=== PATIENT | female | born 1995 | race Caucasian/White ===

== ENCOUNTER 2020-04-18 21:26 | Outpatient (CLI) | payer MEDICARE, MEDICAID | END 2020-04-18 21:27 | disposition critical access hospital (66) | LOC: EMS 21:26 | PROVIDERS: ATTEND Surgery | DX: S51.812A Laceration without foreign body of left forearm, initial encounter (principal); X78.8XXA Intentional self-harm by other sharp object, initial encounter; Y92.099 Unspecified place in other non-institutional residence as the place of occurrence of the external cause | CPT/HCPCS: A0425; A0429 ==

== ENCOUNTER 2020-04-18 22:00 | Emergency (ER) | payer MEDICARE, MEDICAID ==
[2020-04-18 22:14] VITALS: BP 125/78
[2020-04-18 22:28] LABS: MUDS CUTOFF CONCENTRATIONS CUTOFF CONC BELOW:
[2020-04-18 22:36] LABS: BASOPHILS # (AUTO) 0.1 10^3/uL (0.0-0.1); BASOPHILS % (AUTO) 0.6 %; BILIRUBIN,URINE NEGATIVE (NEGATIVE); GLUCOSE, URINE (UA) NEGATIVE (NEGATIVE); HGB - HEMOGLOBIN 12.4 g/dL (12.0-16.0); KETONES,URINE (UA) TRACE mg/dL (NEGATIVE); LEUKOCYTE ESTERASE, URINE NEGATIVE (NEGATIVE); LYMPHOCYTES % (AUTO) 23.4 %; MEAN CORPUSCULAR HEMOGLOBIN 29.7 pg (27.0-31.0); MEAN CORPUSCULAR HGB CONC 32.6 g/dL (32.0-36.0); MEAN CORPUSCULAR VOLUME 90.9 fL (81.0-99.0); MONOCYTES # (AUTO) 0.4 10^3/uL (0.0-1.0); MONOCYTES % (AUTO) 4.7 %; NEUTROPHILS # (AUTO) 6.2 10^3/uL (1.5-6.6); NEUTROPHILS % (AUTO) 71.2 %; NITRITE,URINE NEGATIVE (NEGATIVE); OCCULT BLOOD,URINE TRACE-LYSE (NEGATIVE); PLT - PLATELET COUNT 288 10^3/uL (130-450); PROTEIN,URINE NEGATIVE (NEGATIVE); RED BLOOD COUNT 4.18 10^6/uL (4.20-5.40); RED CELL DISTRIBUTION WIDTH 12.3 % (12.0-15.0); UROBILINOGEN,URINE 0.2 (NORMAL) E.U./dL (NORMAL); WHITE BLOOD COUNT 8.7 x10^3/uL (4.8-10.8)
[2020-04-18 22:37] LABS: CLARITY,URINE CLEAR (CLEAR)
--- NOTE | 2020-04-18 22:39 | ED Physician Documentation ---
PD HPI MHE - Stated complaint Stated Complaint: SI - Chief complaint Chief Complaint: MHE - History obtained from History obtained from: Patient (minimal contribution to HPI from patient due to refusing to talk to me), EMS, Police, Other (s.o.) - History of Present Illness Primary symptom: Self harm - cut Timing - onset: Today (tonight) Contributing factors: Other (see below) - Additional information Additional information: BIBA. significant other called 911 tonight. Patient insists on a female doctor for this evaluation. I explained that I am the only emergency department physician on duty at this time and she responds "you're not touching me". She refused to answer my questions and only allowed me to visually inspect her left FA regarding physical exam. Patient's significant other tells me that patient has difficulty this time of year due to loss of her grandparents. per s.o., she had to take a knife away from patient tonight due to concern she was going to self-harm and subsequently patient went into bathroom and self-inflicted cuts to left FA with a safety razor; s.o. called 911 and police report (reviewed by me) indicates patient would not talk to him but due to concern for her safety, the officer brings her to ED for involuntary evaluation. Review of Systems Unable to obtain: Uncooperative (refuses to answer any of my questions) PD PAST MEDICAL HISTORY - Past Medical History Psych: Depression, Other Other Past Medical History: Borderline personality. Alcohol. ETOH/Substance abuse - Past Surgical History Past Surgical History: No - Present Medications Home Medications: Ambulatory Orders Medication Instructions Recorded Confirmed Topiramate [Topamax] 04/18/20 - Allergies Allergies/Adverse Reactions: Allergies Allergy/AdvReac Type Severity Reaction Status Date / Time latex Allergy Unknown Verified 04/18/20 22:15 sertraline Allergy Unknown Verified 04/18/20 22:15 - Social History Does the pt smoke?: No Smoking Status: Never smoker Does the pt drink ETOH?: No PD ED PE NORMAL - Vitals Vital signs reviewed: Yes - General General: Well developed/nourished, Other (makes eye contact with s.o. and ED RN, minimal and brief eye contact with me. appears angry. says to me youre not touching me, thus exam limited to inpection of left wrist and observed behavior) - HEENT HEENT: EOMI - Derm Derm: Other (multiple superficial linear abrasions to ventral surface left forearm) - Neuro Eye Opening: Spontaneous Motor: Obeys Commands Verbal: Oriented GCS Score: 15 PD ED PE EXPANDED - Psych Psych: Withdrawn, Poor eye contact, Agitated Results - Vitals Vitals: Oxygen O2 Source Room air - Labs Labs: Laboratory Tests 04/18/20 04/18/20 04/18/20 22:25 22:25 22:25 WBC 8.7 RBC 4.18 L Hgb 12.4 Hct 38.0 MCV 90.9 MCH 29.7 MCHC 32.6 RDW 12.3 Plt Count 288 MPV 9.0 Neut # (Auto) 6.2 Lymph # (Auto) 2.0 [place] # (Auto) 0.4 Eos # (Auto) 0.0 Baso # (Auto) 0.1 Absolute Nucleated RBC 0.00 Nucleated RBC % 0.0 Sodium 137 Potassium 3.6 Chloride 104 Carbon Dioxide 23 Anion Gap 10.0 BUN 14 Creatinine 0.7 Estimated GFR (MDRD) 101 Glucose 103 H Calcium 8.8 Total Bilirubin 0.4 AST 15 ALT 12 Alkaline Phosphatase 43 Total Protein 7.6 Albumin 4.5 Globulin 3.1 Albumin/Globulin Ratio 1.5 Lipase 25 TSH 0.98 Urine Color Urine Clarity Urine pH Ur Specific Cherry Log Urine Protein Urine Glucose (UA) Urine Ketones Urine Occult Blood Urine Nitrite Urine Bilirubin Urine Urobilinogen Ur Leukocyte Esterase Ur Microscopic Review Urine Culture Comments Urine HCG, Qual Nasal Adenovirus (PCR) Nasal B. parapertussis DNA (PCR) Nasal Coronavir 229E PCR Nasal Coronavir HKU1 PCR Nasal Coronavir NL63 PCR Nasal Coronavir OC43 PCR Nasal Enterovir/Rhinovir PCR Nasal Influenza B PCR Nasal Parainfluen 1 PCR Nasal Parainfluen 2 PCR Nasal Parainfluen 3 PCR Nasal Parainfluen 4 PCR Nasal RSV (PCR) Nasal B.pertussis DNA PCR Nasal C.pneumoniae (PCR) Usman Human Metapneumo PCR Nasal M.pneumoniae (PCR) Nasal SARS-CoV-2 (PCR) Salicylates < 6.0 Urine Opiates Screen Ur Oxycodone Screen Urine Methadone Screen Ur Propoxyphene Screen Acetaminophen < 10 L Ur Barbiturates Screen Ur Tricyclics Screen Ur Phencyclidine Scrn Ur Amphetamine Screen U Methamphetamines Scrn U Benzodiazepines Scrn Urine Cocaine Screen U Cannabinoids Screen Ethyl Alcohol 7.6 04/18/20 04/18/20 04/18/20 22:25 22:25 22:30 WBC RBC Hgb Hct MCV MCH MCHC RDW Plt Count MPV Neut # (Auto) Lymph # (Auto) [place] # (Auto) Eos # (Auto) Baso # (Auto) Absolute Nucleated RBC Nucleated RBC % Sodium Potassium Chloride Carbon Dioxide Anion Gap BUN Creatinine Estimated GFR (MDRD) Glucose Calcium Total Bilirubin AST ALT Alkaline Phosphatase Total Protein Albumin Globulin Albumin/Globulin Ratio Lipase TSH Urine Color YELLOW Urine Clarity CLEAR Urine pH 5.0 Ur Specific [place] >=1.030 H >1.030 Urine Protein NEGATIVE Urine Glucose (UA) NEGATIVE Urine Ketones TRACE Urine Occult Blood TRACE-LYSE Urine Nitrite NEGATIVE Urine Bilirubin NEGATIVE Urine Urobilinogen 0.2 (NORMAL) Ur Leukocyte Esterase NEGATIVE Ur Microscopic Review NOT INDICATED Urine Culture Comments NOT INDICATED Urine HCG, Qual NEGATIVE Nasal Adenovirus (PCR) NOT DETECTED Nasal B. parapertussis DNA (PCR) NOT DETECTED Nasal Coronavir 229E PCR NOT DETECTED Nasal Coronavir HKU1 PCR NOT DETECTED Nasal Coronavir NL63 PCR NOT DETECTED Nasal Coronavir OC43 PCR NOT DETECTED Nasal Enterovir/Rhinovir PCR NOT DETECTED Nasal Influenza B PCR NOT DETECTED Nasal Parainfluen 1 PCR NOT DETECTED Nasal Parainfluen 2 PCR NOT DETECTED Nasal Parainfluen 3 PCR NOT DETECTED Nasal Parainfluen 4 PCR NOT DETECTED Nasal RSV (PCR) NOT DETECTED Nasal B.pertussis DNA PCR NOT DETECTED Nasal C.pneumoniae (PCR) NOT DETECTED Us[place] Human Metapneumo PCR NOT DETECTED Nasal M.pneumoniae (PCR) NOT DETECTED Nasal SARS-CoV-2 (PCR) NOT DETECTED Salicylates Urine Opiates Screen NEGATIVE Ur Oxycodone Screen NEGATIVE Urine Methadone Screen NEGATIVE Ur Propoxyphene Screen NEGATIVE Acetaminophen Ur Barbiturates Screen NEGATIVE Ur Tricyclics Screen NEGATIVE Ur Phencyclidine Scrn NEGATIVE Ur Amphetamine Screen NEGATIVE U Methamphetamines Scrn NEGATIVE U Benzodiazepines Scrn NEGATIVE Urine Cocaine Screen NEGATIVE U Cannabinoids Screen NEGATIVE Ethyl Alcohol PD MEDICAL DECISION MAKING - ED course Complexity details: reviewed results, re-evaluated patient, considered different ial, d/w patient ED course: police report and s.o. indicate concern for patients safety; she self-inflicted superficial abrasions to her left forearm and will not talk to me, thus precluding any chance of being able to have her contract for safety let alone assess her current mental state and risk of SI, HI, and/or presence of AH/VH. she is awake and alert and has conversations, albeit angry, with s.o. and some other staff. telepsych consult attempted but ED RN was told consult wouldnt be available until approximately 9 AM. [facility] consult obtained and the consult was able to obtain appropriate and necessary information from patient and was able to contract for safety with her. I informed patient of this and told her we would be able to discharge her soon to which she responded it better be real (expletive) soon. Departure - Departure Disposition: 01 Home, Self Care Clinical Impression: Self-harming behavior Condition: Good Instructions: ED Depression Discharge Date/Time: 04/19/20 02:09
[2020-04-18 22:46] LABS: AMPHETAMINE SCREEN,URINE NEGATIVE (NEGATIVE); BENZODIAZEPINES SCREEN, URINE NEGATIVE (NEGATIVE); COCAINE SCREEN URINE NEGATIVE (NEGATIVE); METHADONE SCREEN, URINE NEGATIVE (NEGATIVE); METHAMPHETAMINES SCREEN, URINE NEGATIVE (NEGATIVE); OPIATE SCREEN, URINE NEGATIVE (NEGATIVE); OXYCODONE SCREEN, URINE NEGATIVE (NEGATIVE); PROPOXYPHENE SCREEN, URINE NEGATIVE (NEGATIVE); TRICYCLIC ANTIDEPRESSANT,URINE NEGATIVE (NEGATIVE)
[2020-04-18 22:49] LABS: ACETAMINOPHEN < 10 ug/mL (10-30); ALBUMIN 4.5 g/dL (3.2-5.5); ALBUMIN/GLOBULIN RATIO 1.5 (1.0-2.2); ALKALINE PHOSPHATASE 43 IU/L (42-121); ALT ALANINE AMINOTRANSFERASE 12 IU/L (10-60); AST ASPARTATE AMINOTRANSFERASE 15 IU/L (10-42); BILIRUBIN,TOTAL 0.4 mg/dL (0.2-1.0); BUN - BLOOD UREA NITROGEN 14 mg/dL (6-20); CALCIUM 8.8 mg/dL (8.5-10.3); CARBON DIOXIDE - CO2 23 mmol/L (21-32); CHLORIDE 104 mmol/L (101-111); CREATININE 0.7 mg/dL (0.4-1.0); GLUCOSE 103 mg/dL (70-100); LIPASE 25 U/L (22-51); SALICYLATE < 6.0 mg/dL; SODIUM 137 mmol/L (135-145); TOTAL PROTEIN 7.6 g/dL (6.7-8.2)
[2020-04-18 23:03] LABS: HCG UR QUAL NEGATIVE
[2020-04-18 23:43] LABS: C. PNEUMONIAE- RESP PCR PANEL NOT DETECTED
== END 2020-04-19 02:09 | disposition home or self-care (01) ==
LOC: ED 22:00
DX: S51.812A Laceration without foreign body of left forearm, initial encounter (principal); X78.8XXA Intentional self-harm by other sharp object, initial encounter
CPT/HCPCS: 0202U; 36415; 80053; 80306; 80307; 80320; 80329; 81001; 81003; 81025; 83690; 84443; 85025; 87086; 99281; 99283